=== PATIENT | female | born 1940 | race Hispanic/Latino ===

== ENCOUNTER 2018-01-03 07:14 | Observation (INO) | payer MEDICARE ==
[2017-12-31 14:32] LABS: BASOPHILS # (AUTO) 0.1 (0.0-0.1); BASOPHILS % 0.5 % (0.0-1.0); EOSINOPHILS # (AUTO) 0.1 (0.0-0.4); EOSINOPHILS % 1.4 % (0.0-6.0); HEMATOCRIT 39.3 % (34.2-44.1); HEMOGLOBIN 12.4 g/dL (12.0-16.0); LYMPHOCYTES # (AUTO) 2.4 (1.0-3.2); LYMPHOCYTES % 25.8 % (18.0-39.1); MEAN CORPUSCULAR HEMOGLOBIN 27.6 pg (28-32); MEAN CORPUSCULAR HGB CONC 31.6 g/dL (31-35); MEAN CORPUSCULAR VOLUME 87.3 fL (81-99); MONOCYTES # (AUTO) 0.8 (0.2-0.8); MONOCYTES % 8.8 % (4.4-11.3); NEUTROPHILS # (AUTO) 5.8 (2.1-6.9); NEUTROPHILS % 62.6 % (38.7-80.0); PLATELET COUNT 288 x10e3/uL (140-360); RED CELL DISTRIBUTION WIDTH 14.3 % (11.7-14.4)
[2017-12-31 14:47] LABS: ANION GAP 12.1 mmol/L (8-16); BLOOD UREA NITROGEN 17 mg/dL (7-26); BUN/CREATININE RATIO 21 (6-25); CALCIUM 9.8 mg/dL (8.4-10.2); CARBON DIOXIDE 28 mmol/L (22-29); CHLORIDE 104 mmol/L (98-107); EST GLOMERULAR FILTRATION RATE > 60 ML/MIN (60-); GLUCOSE 81 mg/dL (74-118); POTASSIUM 4.1 mmol/L (3.5-5.1); SODIUM 140 mmol/L (136-145)
--- NOTE | 2017-12-31 14:52 | Diagnostic Imaging Report ---
PROCEDURE: Frontal and lateral views of the chest. COMPARISON: None. INDICATIONS: PRE OP FOR BLADDER SURGERY FINDINGS: Lines/tubes: None. Lungs: The lungs are well inflated. There is no evidence of consolidation or pulmonary edema. Pleura: There is no pleural effusion or pneumothorax. Heart and mediastinum: Enlarged cardiac silhouette with central pulmonary venous congestion. Bones: No acute bony abnormality. IMPRESSION: 1. large cardiac silhouette with central pulmonary venous congestion. No consolidation or effusion. Brian Meade M.D. Dictated by: Brian Meade M.D. on 12/31/2017 at 14:54 Electronically approved by: Brian Meade M.D. on 12/31/2017 at 14:54
[~2018-01-03] VITALS: Ht 170.2 cm; Wt 143.3 kg
[~2018-01-03 07:14] MED LIST: CARVEDILOL12.5 MG PO; CYMBALTA30 MG; DILTIAZEM 24HR180 MG; ELIQUIS; FUROSEMIDE40 MG PO; GLIPIZIDE ER5 MG; LIDOCAINE HCL50 ML TOP; NORCO 10-325 T1 EACH; POLYETHYLENE GL17 GM PO; POTASSIUM CHLO10 ME1 PO; SIMVASTATIN20 MG PO; ULTRAM50 MG PO
--- OUTSIDE RECORDS SUMMARY | 2018-01-03 07:16 | XMS REPORT ---
Author Author [facility] Address Unknown Phone Unavailable Care Team Providers Care [employer] Set Up Mechanic Name Role Phone RICK OSCAR Unavailable Unavailable Problems This patient has no known problems. Allergies, Adverse Reactions, Alerts This patient has no known allergies or adverse reactions. Medications This patient has no known medications. Results Test Description Test Time Test Comments Text Results Atomic Results Result Comments CHEST 2 VIEWS [place] [address] Patient Name: KASSY MTZ MR #: [id number] : 1940 Age/Sex: 77/F Req # : [id number] Adm Physician: Ordered by: WILLARD VALDIVIA MD Report #: [id number] Location: OR Room/Bed: Procedure: [id number] DX/CHEST 2 VIEWS Exam Date: 12/31/17 Exam Time: 1436 REPORT STATUS: Signed PROCEDURE: Frontal and lateral views of the chest. COMPARISON: None. INDICATIONS: PRE OP FOR BLADDER SURGERY FINDINGS: Lines/tubes: None. Lungs: The lungs are well inflated. There is no evidence of consolidation or pulmonary edema. Pleura: There is no pleural effusion or pneumothorax. Heart and mediastinum: Enlarged cardiac silhouette with central pulmonary venous congestion. Bones: No acute bony abnormality. IMPRESSION: 1. large cardiac silhouette with central pulmonary venous congestion. No consolidation or effusion. Julius Meade M.D. Dictated by: Julius Meade M.D. on 12/31/2017 at 14:54 Electronically approved by : Julius Meade M.D. on 12/31/2017 at 14:54 Dictated By: JULIUS MEADE MD Transcribed By: OLVIN on 12/31/177 COPY TO: WILLARD VALDIVIA MD
[2018-01-03] MEDS ORDERED: CEFAZOLIN SOD 1 GM VIAL ONE (07:22)
[2018-01-03] MEDS ORDERED: VENTOLIN HFA18 GM (07:51)
[2018-01-03] MEDS ORDERED: IOPAMIDOL 610MG/1ML 300 MG/ML VIAL IV ONE (08:52)
[2018-01-03] MEDS ORDERED: MUPIROCIN 2% OINT 22 GM TUBE ONE (08:52)
[2018-01-03] MEDS ORDERED: BUPIVACAINE 0.25%/EPI 30ML SDV INJ ONE (08:52)
[2018-01-03] MEDS ORDERED: BACITRACIN 50,000 UNIT VIAL ONE (08:52)
[2018-01-03] MEDS ORDERED: METHYLENE BLUE 1% INJ 10 ML VIAL INJ ONE (08:52)
[2018-01-03] MEDS ORDERED: CEFAZOLIN SOD 2 GM/D5W 50ML 50 ML IV ONE (08:56)
[2018-01-03] MEDS ORDERED: CLINDAMYCIN 300MG 50 ML IV ONE (09:03)
[2018-01-03] MEDS ORDERED: FENTANYL CITRATE/PF 100MCG/2 ML INJ ONE ×2 (11:56→14:47)
[2018-01-03] MEDS ORDERED: SODIUM CHLORIDE 0.45% 1,000 ML IV SCH (12:13)
[2018-01-03] MEDS ORDERED: ONDANSETRON HCL INJ 2 MG/ML VIAL IV PRN (12:15)
[2018-01-03] MEDS ORDERED: HYDROMORPHONE 1MG/1ML INJ IV PRN (12:15)
[2018-01-03] MEDS ORDERED: DOCUSATE SODIUM 100 MG CAP PO PRN (12:15)
[2018-01-03] MEDS ORDERED: SIMETHICONE 80 MG CHEW PO PRN (12:15)
[2018-01-03] MEDS ORDERED: PROMETHAZINE HCL (IM) 25 MG/ML VIAL IV PRN (12:15)
[2018-01-03] MEDS ORDERED: MORPHINE SULFATE 2 MG/ML SYR IV PRN (12:15)
[2018-01-03] MEDS ORDERED: METOCLOPRAMIDE HCL 10 MG/2ML VIAL ONE (12:27)
[2018-01-03] MEDS ORDERED: ONDANSETRON HCL 4 MG ORAL DISINTEGRATING TAB ONE (12:28)
[2018-01-03] MEDS ORDERED: PROMETHAZINE 12.5MG/ NACL 0.9% 50 ML IV PRN (12:45)
[2018-01-03 13:19] VITALS: BP 105/80
[2018-01-03 13:28] VITALS: BP 105/80
[2018-01-03] MEDS ORDERED: CEFAZOLIN SOD 1 GM/NS 50ML 50 ML IV SCH (14:00)
[2018-01-03] MEDS: HYDROCODONE/APAP 10MG-325MG TAB PO PRN (14:45)
[2018-01-03 15:19] VITALS: BP 124/82
[2018-01-03] MEDS: SODIUM CHLORIDE 0.45% 1,000 ML IV SCH (16:00)
[2018-01-03] MEDS: CEFAZOLIN SOD 1 GM VIAL IV SCH (16:26)
[2018-01-03] MEDS: CLINDAMYCIN 600MG/D5W 50ML 50 ML IV SCH (16:26)
[2018-01-03 17:05] LABS: ANION GAP 16.2 mmol/L (8-16); BLOOD UREA NITROGEN 21 mg/dL (7-26); BUN/CREATININE RATIO 27 (6-25); CALCIUM 9.1 mg/dL (8.4-10.2); CARBON DIOXIDE 24 mmol/L (22-29); CHLORIDE 105 mmol/L (98-107); CREATININE, SERUM 0.79 mg/dL (0.57-1.11); EST GLOMERULAR FILTRATION RATE > 60 ML/MIN (60-); GLUCOSE 138 mg/dL (74-118); SODIUM 140 mmol/L (136-145)
[2018-01-03 17:06] LABS: POTASSIUM 5.2 mmol/L (3.5-5.1)
[2018-01-03 17:41] LABS: HEMATOCRIT 35.1 % (34.2-44.1); HEMOGLOBIN 11.2 g/dL (12.0-16.0); LYMPHOCYTES % 0.9 % (18.0-39.1); MEAN CORPUSCULAR HEMOGLOBIN 27.9 pg (28-32); MEAN CORPUSCULAR HGB CONC 31.9 g/dL (31-35); MEAN CORPUSCULAR VOLUME 87.3 fL (81-99); MONOCYTES % 0.4 % (4.4-11.3); PLATELET COUNT 268 x10e3/uL (140-360); RED BLOOD COUNT 4.02 x10e6/uL (3.6-5.1); RED CELL DISTRIBUTION WIDTH 14.3 % (11.7-14.4)
[2018-01-03] MEDS ORDERED: GLYCOPYRROLATE INJ 1MG/ 5 ML SYR ONE (17:48)
[2018-01-03] MEDS ORDERED: DEXAMETHASONE SOD PHOS INJ 4 MG/ML VIAL ONE (17:48)
[2018-01-03] MEDS ORDERED: PHENYLEPHRINE HCL 1% 10 MG/ML VIAL ONE (17:48)
[2018-01-03] MEDS ORDERED: SEVOFLURANE INHAL SOLN 250 ML PEN BTL ONE (17:48)
[2018-01-03] MEDS ORDERED: EPHEDRINE SULFATE INJ 50 MG/10 ML SYR ONE (17:48)
[2018-01-03] MEDS ORDERED: PROPOFOL IV EMULSION 10 MG/ML 20 ML VIAL ONE (17:48)
[2018-01-03] MEDS ORDERED: ONDANSETRON HCL INJ 2 MG/ML VIAL ONE (17:48)
[2018-01-03] MEDS ORDERED: NEOSTIGMINE 5 MG/5ML SYR ONE (17:48)
[2018-01-03] MEDS ORDERED: ROCURONIUM BROMIDE 10 MG/ML 5ML VIAL ONE (17:48)
[2018-01-03] MEDS ORDERED: LIDOCAINE HCL 2% LOCAL INJ 5 ML SDV VIAL INJ ONE (17:48)
[2018-01-03 20:00] VITALS: BP_SYST 112; BP_SYST 159; BP_DIAS 69; BP_DIAS 74
[2018-01-03] MEDS: HYDROMORPHONE 2MG/ML INJ IV PRN (22:15)
[2018-01-04 00:47] VITALS: BP 114/80
[2018-01-04] MEDS: SODIUM CHLORIDE 0.45% 1,000 ML IV SCH (01:15)
[2018-01-04] MEDS: CLINDAMYCIN 600MG/D5W 50ML 50 ML IV SCH ×2 (01:15→09:09)
[2018-01-04] MEDS: CEFAZOLIN SOD 1 GM VIAL IV SCH ×2 (01:15→09:09)
[2018-01-04] MEDS: HYDROMORPHONE 2MG/ML INJ IV PRN (02:53)
[2018-01-04 04:00] VITALS: BP 116/69
[2018-01-04 06:40] LABS: BASOPHILS % 0.1 % (0.0-1.0); HEMATOCRIT 32.1 % (34.2-44.1); HEMOGLOBIN 10.2 g/dL (12.0-16.0); LYMPHOCYTES # (AUTO) 1.5 (1.0-3.2); LYMPHOCYTES % 9.3 % (18.0-39.1); MEAN CORPUSCULAR HEMOGLOBIN 27.9 pg (28-32); MEAN CORPUSCULAR HGB CONC 31.8 g/dL (31-35); MEAN CORPUSCULAR VOLUME 87.9 fL (81-99); MONOCYTES # (AUTO) 1.2 (0.2-0.8); MONOCYTES % 7.5 % (4.4-11.3); NEUTROPHILS % 82.4 % (38.7-80.0); PLATELET COUNT 243 x10e3/uL (140-360); RED BLOOD COUNT 3.65 x10e6/uL (3.6-5.1); RED CELL DISTRIBUTION WIDTH 14.4 % (11.7-14.4)
[2018-01-04 07:03] LABS: ANION GAP 12.5 mmol/L (8-16); BLOOD UREA NITROGEN 17 mg/dL (7-26); BUN/CREATININE RATIO 22 (6-25); CALCIUM 8.5 mg/dL (8.4-10.2); CARBON DIOXIDE 26 mmol/L (22-29); CHLORIDE 105 mmol/L (98-107); CREATININE, SERUM 0.79 mg/dL (0.57-1.11); EST GLOMERULAR FILTRATION RATE > 60 ML/MIN (60-); GLUCOSE 129 mg/dL (74-118); POTASSIUM 4.5 mmol/L (3.5-5.1); SODIUM 139 mmol/L (136-145)
[2018-01-04 08:27] VITALS: BP 114/69
[2018-01-04] MEDS: HYDROCODONE/APAP 10MG-325MG TAB PO PRN (10:00)
--- NOTE | 2018-01-04 10:07 | History and Physical ---
The patient is postoperative care. HISTORY: Patient is a 77-year-old female postoperative care with Dr. Saunders for cystocele repair and urinary bladder lift. The patient has urinary incontinence. She is stable postop. PAST MEDICAL HISTORY: Multiple. Please review previous history and physical. She is morbidly obese, diabetes, hypertension, hyperlipidemia, osteoarthritic pain, urinary bladder drop, and urinary incontinence. PAST SURGICAL HISTORY: Abdominal apron removal, cholecystectomy, hysterectomy. SOCIAL HISTORY: Patient lives at home. She does not smoke or use alcohol. No recreational drugs. ALLERGIES: NO KNOWN ALLERGIES. HOME MEDICATIONS: List reviewed. REVIEW OF SYSTEMS: As mentioned. PHYSICAL EXAMINATION VITAL SIGNS: Stable. Postoperative orders are done. IMPRESSION: Postoperative cystocele repair and graft sling placement. PLAN: Continue with postoperative care. Resume home medications. Monitor the patient's lab work. The patient is stable. Please review the patient's shortstay history and physical from Dr. Carlito Saunders. Job#: [id number] PR
--- NOTE | 2018-01-04 10:24 | Operative Report ---
DATE OF PROCEDURE: January 03, 2018 SERVICE: Urology. ATTENDING: Dr. Omid Foster. PREOPERATIVE DIAGNOSIS: 1. Large cystocele. 2. Large rectocele. 3. Urinary incontinence. POSTOPERATIVE DIAGNOSIS: 1. Large cystocele. 2. Large rectocele. 3. Urinary incontinence. OPERATION PERFORMED: 1. Cystocele repair with fascia valeria graft. 2. Cystoscopy and retrograde pyelogram under fluoroscopic control. 3. Interpretation of x-ray. 4. Supervision of fluoroscopy. 5. Pelvic exam under anesthesia. This is done as part of the assessment of the large rectocele, not related to the cystocele. LIVE IN HOUSEKEEPER: Dr. Carlito Saunders. ANESTHESIA: General. CLINICAL INDICATION NOTE: This is a 77-year-old patient who has a very large cystocele, rectocele. Patient was brought for repair of the cystocele. She has also urinary incontinence. Patient is morbidly obese and advised in the past to try to lose weight, and she was able to lose some pounds but not that many. She was brought for surgery. She is aware of potential complications and benefits and knows that she may need additional procedures urologically as well as the rectocele repair. DESCRIPTION OF PROCEDURE AND FINDINGS: After a proper level of anesthesia was achieved, patient was placed in lithotomy position, prepped and draped in a sterile fashion. The labia minora were sutured laterally to expose the introitus using 2-0 silk. Following this, the anterior aspect of the cystocele was injected with 2.5% Marcaine. A long 22-gauge needle was used. Following this, a vaginal incision was made. Dissection was then carried on both sides towards the pelvis. This was done with blunt and sharp dissection until it was possible to palpate into the pelvis. A dissection posteriorly was done, reaching the area of the cervix. Patient did have hysterectomy in the past. Following this, 2-0 Vicryl sutures were used to repair the cystocele, interrupted sutures. Four of them were placed. Following this, the graft was prepared. Fascia valeria graft was used. The edges were cut, and the suture was placed on each corner to be used later in transferring to the suprapubic area, and a number 1 suture was used. Following this, a Torres catheter was inserted. The bladder was drained, and the graft was sutured using 3-0 chromic catgut. Its midline was sutured to the urethra, and the distal posterior part was sutured posteriorly. Additional 2 stitches were placed, 1 on each side anteriorly as well as posteriorly. Following this, with use of a Yashica needle, it was possible to transfer the sutures to the suprapubic area, hugging the symphysis and just behind it. Following this, the double string on each side was present. One of them was transferred from the left side to the right side and brought back with 1 suture from the contralateral side, and then the 2 sutures on each side were tied very loosely without pulling on the graft. Some of the excessive vaginal wall was excised, and the vaginal wall was closed with a running 2-0 Vicryl. The single small opening suprapubically was closed with a single fine stitch. Following this, a cystoscopy was done. Retrograde to the right side was unremarkable. On the left side, the ureteral orifice was displaced laterally and backward. It was possible to identify urine coming out from that orifice, and only the very distal was demonstrated retrograde. At this point, a Torres catheter 18-Martiniquais was placed and vaginal packing was done. Before the packing, a pelvic exam was done still under anesthesia, and no masses were palpable on both sides. Patient was then transferred after vaginal packing to the recovery room in satisfactory condition. Estimated blood loss just a few mL. Job#: [id number] TITUS
[2018-01-04] MEDS ORDERED: ONDANSETRON HCL 4 MG ORAL DISINTEGRATING TAB PO PRN (10:30)
--- NOTE | 2018-01-04 10:31 | Discharge Summary ---
CONSULTANTS: Dr. Carlito Saunders and Dr. Loretta Saunders FINAL DIAGNOSES 1. Status post urological procedure with cystocele repair, graft and sling secondary to urinary incontinence. Patient has rectal prolapse as well. 2. Multiple chronic baseline problems including diabetes, hypertension, morbidly obese, chronic osteoarthritic pain. HOSPITAL COURSE: Patient is a 77-year-old female status postoperative day #1 today. Patient is stable. She was on observation. She had a very complex cystocele repair, graft and sling placement. Patient has significant urinary incontinence. She is morbidly obese. Found out that the patient also has rectal prolapse as well. Patient will need close followup as an outpatient. Recommendations include weight loss, pain control and then possible referral to a colorectal surgeon for rectal prolapse repair. Patient is stable and discharged home today. The patient has been cleared. She will follow up with me next week. She will follow up with Dr. Saunders per his instructions. Resume home medications. Restart Eliquis on instead of today or tomorrow. The patient is stable and discharged home today. Job#: [id number]
== END 2018-01-04 11:42 | disposition home health service (06) ==
LOC: OR 07:14 → IMCU 12:59
PROVIDERS: ADMIT Internal Medicine; ATTEND Internal Medicine
DX: N81.10 Cystocele, unspecified (principal); R32 Unspecified urinary incontinence; N81.6 Rectocele; E11.65 Type 2 diabetes mellitus with hyperglycemia; Z79.4 Long term (current) use of insulin; I10 Essential (primary) hypertension; E66.01 Morbid (severe) obesity due to excess calories; Z68.43 Body mass index [BMI] 50.0-59.9, adult; K62.3 Rectal prolapse; I48.91 Unspecified atrial fibrillation; Z79.01 Long term (current) use of anticoagulants; G47.33 Obstructive sleep apnea (adult) (pediatric); I50.9 Heart failure, unspecified; Z88.8 Allergy status to other drugs, medicaments and biological substances
CPT/HCPCS: 36415 ×3; 57240; 57267; 71046; 74420; 80048 ×3; 82948; 85025 ×3; 93005; 97161; C1758; C1762; G0378 ×2; G8978; G8979; J0690 ×2; J1100; J1170 ×2; J2001; J2270; J2370; J2405; J2765; J3490; Q9967

== ENCOUNTER 2018-03-11 16:35 | Emergency (ER) | payer MEDICARE ==
[~2018-03-11] VITALS: Ht 170.2 cm; Wt 143.3 kg
[~2018-03-11 16:35] MED LIST changes: +VENTOLIN HFA18 GM
[2018-03-11 17:58] LABS: BASOPHILS # (AUTO) 0.1 (0.0-0.1); BASOPHILS % 0.8 % (0.0-1.0); EOSINOPHILS # (AUTO) 0.2 (0.0-0.4); EOSINOPHILS % 1.6 % (0.0-6.0); HEMATOCRIT 38.7 % (34.2-44.1); HEMOGLOBIN 12.4 g/dL (12.0-16.0); LYMPHOCYTES # (AUTO) 2.1 (1.0-3.2); LYMPHOCYTES % 20.8 % (18.0-39.1); MEAN CORPUSCULAR HEMOGLOBIN 27.1 pg (28-32); MEAN CORPUSCULAR VOLUME 84.5 fL (81-99); MONOCYTES # (AUTO) 0.8 (0.2-0.8); MONOCYTES % 7.9 % (4.4-11.3); NEUTROPHILS # (AUTO) 6.9 (2.1-6.9); NEUTROPHILS % 68.3 % (38.7-80.0); PLATELET COUNT 287 x10e3/uL (140-360); RED BLOOD COUNT 4.58 x10e6/uL (3.6-5.1)
[2018-03-11 18:02] LABS: INR 1.18; PROTHROMBIN TIME 14.1 seconds (11.9-14.5)
[2018-03-11 18:03] LABS: PARTIAL THROMBOPLASTIN TIME 32.3 seconds (23.8-35.5)
[2018-03-11 18:12] LABS: ALBUMIN 3.5 g/dL (3.5-5.0); ALBUMIN/GLOBULIN RATIO 1.1 (0.8-2.0); ANION GAP 14.1 mmol/L (8-16); CALCIUM 9.3 mg/dL (8.4-10.2); CREATININE, SERUM 1.04 mg/dL (0.57-1.11); POTASSIUM 3.1 mmol/L (3.5-5.1)
[2018-03-11 18:18] LABS: CREATINE KINASE MB 0.8 ng/mL (0-5.0)
[2018-03-11 19:03] LABS: CLARITY,URINE SL CLOUDY (CLEAR); COLOR,URINE YELLOW (YELLOW); LEUKOCYTE ESTERASE ,URINE TRACE (NEGATIVE); NITRITE,URINE NEGATIVE (NEGATIVE); PROTEIN,URINE DIPSTICK NEGATIVE (NEGATIVE)
[2018-03-11 19:04] LABS: BILIRUBIN,URINE NEGATIVE (NEGATIVE); KETONES,URINE NEGATIVE (NEGATIVE); URINE UROBILINOGEN 0.2 mg/dL (0.2 - 1)
[2018-03-11 19:10] LABS: BACTERIA,URINE RARE /HPF
[2018-03-11 19:11] LABS: EPITHELIAL CELLS,URINE MANY /LPF; MUCUS,URINE MODERATE (RARE)
--- NOTE | 2018-03-11 19:29 | Diagnostic Imaging Report ---
EXAMINATION: CHEST SINGLE (NOT PORTABLE) INDICATION: Rectal bleeding COMPARISON: 12/31/2017 FINDINGS: TUBES and LINES: None. LUNGS: Lungs are well inflated. Mild chronic appearing changes in the lungs. Perihilar peribronchial hazy opacity with linear density in the left hilar region could be due to bronchitis or early pneumonia. Suspected prominence of the pulmonary arteries. PLEURA: No pleural effusion or pneumothorax. HEART AND MEDIASTINUM: The cardiomediastinal silhouette is unremarkable. BONES AND SOFT TISSUES: No acute osseous lesion. Soft tissues are unremarkable. UPPER ABDOMEN: No free air under the diaphragm. IMPRESSION: Findings which could be due to bronchitis or early pneumonia. Suspected prominence of the pulmonary arteries. Nonemergent CT scan of the chest may be of benefit. Signed by: Dr. Alex Currie M.D. on 03/11/2018 7:26 PM
[2018-03-11 21:41] VITALS: BP 118/56
== END 2018-03-11 22:17 | disposition home or self-care (01) ==
LOC: ER 16:35
DX: K62.89 Other specified diseases of anus and rectum (principal); K62.3 Rectal prolapse; I10 Essential (primary) hypertension; E11.9 Type 2 diabetes mellitus without complications
CPT/HCPCS: 36415; 71045; 80053; 81001; 82550; 82553; 84484; 85025; 85610; 85730; 93005; 99283

== ENCOUNTER 2023-06-23 10:47 | Emergency (ER) | payer MEDICARE ==
[~2023-06-23] VITALS: Ht 170.2 cm; Wt 136.1 kg
[~2023-06-23 10:47] MED LIST changes: +DICYCLOMINE HCL10 MG PO
[2023-06-23] MEDS ORDERED: ONDANSETRON HCL INJ 2MG/ML 2ML 2 MG/ML VIAL IV STA (11:28)
[2023-06-23] MEDS ORDERED: SODIUM CHLORIDE 0.9% 1000ML 1,000 ML IV ONE (11:30)
[2023-06-23 11:37] LABS: BASOPHILS # (AUTO) 0.1 (0.0-0.1); BASOPHILS % 0.7 % (0.0-1.0); EOSINOPHILS # (AUTO) 0.2 (0.0-0.4); EOSINOPHILS % 1.9 % (0.0-6.0); HEMATOCRIT 43.8 % (34.2-44.1); HEMOGLOBIN 14.2 g/dL (12.0-16.0); LYMPHOCYTES # (AUTO) 2.5 (1.0-3.2); LYMPHOCYTES % 28.5 % (18.0-39.1); MEAN CORPUSCULAR HEMOGLOBIN 28.3 pg (28-32); MEAN CORPUSCULAR HGB CONC 32.4 g/dL (31-35); MEAN CORPUSCULAR VOLUME 87.3 fL (81-99); MONOCYTES # (AUTO) 0.7 (0.2-0.8); MONOCYTES % 8.5 % (4.4-11.3); NEUTROPHILS # (AUTO) 5.1 (2.1-6.9); NEUTROPHILS % 59.5 % (38.7-80.0); PLATELET COUNT 261 x10e3/uL (140-360); RED BLOOD COUNT 5.02 x10e6/uL (3.6-5.1); RED CELL DISTRIBUTION WIDTH 13.9 % (11.7-14.4); WHITE BLOOD COUNT 8.62 x10e3/uL (4.8-10.8)
[2023-06-23 11:49] LABS: INR 1.6; PROTHROMBIN TIME 19.4 seconds (11.9-14.5)
[2023-06-23 11:50] LABS: PARTIAL THROMBOPLASTIN TIME 41.8 seconds (23.8-35.5)
[2023-06-23 11:56] LABS: CLARITY,URINE CLOUDY (CLEAR); COLOR,URINE YELLOW (YELLOW)
[2023-06-23 11:57] LABS: ALBUMIN 3.9 g/dL (3.5-5.0); ALBUMIN/GLOBULIN RATIO 1.1 (0.8-2.0); ANION GAP 15.4 mmol/L (8-16); CALCIUM 9.8 mg/dL (8.4-10.2); CREATININE, SERUM 0.85 mg/dL (0.57-1.11); POTASSIUM 3.4 mmol/L (3.5-5.1)
[2023-06-23 11:57] LABS: KETONES,URINE NEGATIVE (NEGATIVE); LEUKOCYTE ESTERASE ,URINE TRACE (NEGATIVE); NITRITE,URINE NEGATIVE (NEGATIVE); PROTEIN,URINE DIPSTICK NEGATIVE (NEGATIVE); URINE UROBILINOGEN 0.2 mg/dL (0.2 - 1)
[2023-06-23 12:00] LABS: BACTERIA,URINE MANY /HPF; EPITHELIAL CELLS,URINE MODERATE /LPF; RBC,URINE 0-5 /HPF (0-5)
[2023-06-23] MEDS ORDERED: CEPHALEXIN500 MG PO (13:57)
[2023-06-23] MEDS ORDERED: PANTOPRAZOLE SO40 MG PO (13:59)
[2023-06-23 14:20] VITALS: BP 114/69; PULSE 83; RESP 17; TEMP 98.3; O2SAT 98
== END 2023-06-23 14:18 | disposition home or self-care (01) ==
LOC: ER 11:05
DX: R19.5 Other fecal abnormalities (principal); N39.0 Urinary tract infection, site not specified; I10 Essential (primary) hypertension; E11.9 Type 2 diabetes mellitus without complications; I50.9 Heart failure, unspecified; I48.91 Unspecified atrial fibrillation; E78.5 Hyperlipidemia, unspecified; M19.09 Primary osteoarthritis, other specified site
CPT/HCPCS: 36415; 80053; 81001; 83690; 85025; 85610; 85730; 99283; C9113; J2405; J7030

== ENCOUNTER 2024-05-03 11:10 | Inpatient (IN) | payer MEDICARE ==
[~2024-05-03] VITALS: Ht 170.2 cm; Wt 136.3 kg
[~2024-05-03 11:10] MED LIST changes: +CEPHALEXIN500 MG PO; +PANTOPRAZOLE SO40 MG PO
[2024-05-03 11:28] VITALS: TEMP 98.2
[2024-05-03 12:47] LABS: BASOPHILS # (AUTO) 0.1 (0.0-0.1); BASOPHILS % 1.1 % (0.0-1.0); EOSINOPHILS # (AUTO) 0.3 (0.0-0.4); EOSINOPHILS % 3.8 % (0.0-6.0); HEMATOCRIT 41.4 % (34.2-44.1); HEMOGLOBIN 12.1 g/dL (12.0-16.0); LYMPHOCYTES # (AUTO) 1.7 (1.0-3.2); LYMPHOCYTES % 22.7 % (18.0-39.1); MEAN CORPUSCULAR HEMOGLOBIN 27.9 pg (28-32); MEAN CORPUSCULAR HGB CONC 29.2 g/dL (31-35); MEAN CORPUSCULAR VOLUME 95.6 fL (81-99); MONOCYTES # (AUTO) 0.7 (0.2-0.8); MONOCYTES % 9.1 % (4.4-11.3); NEUTROPHILS # (AUTO) 4.6 (2.1-6.9); NEUTROPHILS % 62.4 % (38.7-80.0); PLATELET COUNT 203 x10e3/uL (140-360); RED BLOOD COUNT 4.33 x10e6/uL (3.6-5.1); RED CELL DISTRIBUTION WIDTH 14.2 % (11.7-14.4); WHITE BLOOD COUNT 7.44 x10e3/uL (4.8-10.8)
[2024-05-03 13:08] LABS: INR 1.9; PROTHROMBIN TIME 22.7 seconds (11.9-14.5)
[2024-05-03 13:09] LABS: PARTIAL THROMBOPLASTIN TIME 39.4 seconds (23.8-35.5)
[2024-05-03 13:10] LABS: INFLUENZAE A&B ANTIGEN (RAPID) NEGATIVE (NEGATIVE); RESPIRATORY SYNC. VIRUS NEGATIVE (NEGATIVE)
[2024-05-03 13:15] LABS: ALBUMIN 3.7 g/dL (3.5-5.0); ALBUMIN/GLOBULIN RATIO 1.2 (0.8-2.0); BILIRUBIN,TOTAL 0.9 mg/dL (0.2-1.2); CALCIUM 9.1 mg/dL (8.4-10.2); CREATININE, SERUM 0.88 mg/dL (0.57-1.11); MAGNESIUM 1.7 MG/DL (1.3-2.1); TOTAL PROTEIN 6.8 g/dL (6.5-8.1)
[2024-05-03 13:20] LABS: TROPONIN I 0.013 ng/mL (0-0.300)
[2024-05-03] MEDS: Morphine 2mg Syringe 2 MG/ML SYR IV ONE (13:38)
[2024-05-03] MEDS: ONDANSETRON HCL INJ 2MG/ML 2ML 2 MG/ML VIAL IV STA (13:38)
[2024-05-03] MEDS: SODIUM CHLORIDE 0.9% 500ML 500 ML IV ONE (13:38)
[2024-05-03] MEDS ORDERED: IOPAMIDOL 370 MG/ML 100 ML INFUS..BTL INJ ONE (13:42)
[2024-05-03] MEDS ORDERED: ONDANSETRON HCL INJ 2MG/ML 2ML 2 MG/ML VIAL IV PRN (16:30)
[2024-05-03] MEDS: METOPROLOL TARTRATE 25 MG TAB PO ONE (16:47)
[2024-05-03] MEDS: FUROSEMIDE INJ 10 MG/ML 2 ML VIAL IV SCH (16:47)
[2024-05-03 16:48] VITALS: PULSE 85; RESP 20; O2SAT 96
[2024-05-03 20:09] VITALS: PULSE 91; RESP 15
[2024-05-03 20:45] VITALS: BP 122/67; PULSE 67; RESP 19; TEMP 97.9; O2SAT 100
[2024-05-03 21:00] VITALS: BP 122/67; PULSE 67; RESP 19; TEMP 97.9; O2SAT 100
[2024-05-04] VITALS (10 sets, daily range): BP systolic 100–136; BP diastolic 62–74; PULSE 85–98; RESP 19–22; TEMP 97.6–98.6; O2SAT 94–100
[2024-05-04] MEDS ORDERED: XARELTO10 MG PO (00:13)
[2024-05-04] MEDS ORDERED: MONTELUKAST SOD10 MG PO (00:13)
[2024-05-04] MEDS ORDERED: NEURONTIN300 MG PO (00:13)
[2024-05-04] MEDS ORDERED: VENTOLIN HFA18 GM INH (00:13)
[2024-05-04] MEDS ORDERED: LEXAPRO10 MG PO (00:13)
[2024-05-04] MEDS ORDERED: POTASSIUM CHLO20 ME1 PO (00:13)
[2024-05-04] MEDS ORDERED: ALLOPURINOL100 MG PO (00:13)
[2024-05-04] MEDS ORDERED: DICYCLOMINE HCL20 MG PO (00:13)
[2024-05-04] MEDS: ACETAMINOPHEN 325 MG TAB PO PRN (04:34)
[2024-05-04 06:00] LABS: BASOPHILS # (AUTO) 0.1 (0.0-0.1); BASOPHILS % 0.8 % (0.0-1.0); EOSINOPHILS # (AUTO) 0.3 (0.0-0.4); EOSINOPHILS % 2.9 % (0.0-6.0); HEMATOCRIT 38.2 % (34.2-44.1); HEMOGLOBIN 11.1 g/dL (12.0-16.0); LYMPHOCYTES # (AUTO) 1.3 (1.0-3.2); MEAN CORPUSCULAR HEMOGLOBIN 27.8 pg (28-32); MEAN CORPUSCULAR HGB CONC 29.1 g/dL (31-35); MEAN CORPUSCULAR VOLUME 95.7 fL (81-99); MONOCYTES # (AUTO) 0.8 (0.2-0.8); NEUTROPHILS # (AUTO) 6.1 (2.1-6.9); NEUTROPHILS % 71.6 % (38.7-80.0); PLATELET COUNT 218 x10e3/uL (140-360); RED BLOOD COUNT 3.99 x10e6/uL (3.6-5.1); RED CELL DISTRIBUTION WIDTH 14.2 % (11.7-14.4); WHITE BLOOD COUNT 8.51 x10e3/uL (4.8-10.8)
[2024-05-04 06:38] LABS: ALBUMIN 3.3 g/dL (3.5-5.0); ALBUMIN/GLOBULIN RATIO 1.3 (0.8-2.0); ANION GAP 13.3 mmol/L (8-16); BILIRUBIN,TOTAL 0.7 mg/dL (0.2-1.2); CALCIUM 8.3 mg/dL (8.4-10.2); CREATININE, SERUM 0.89 mg/dL (0.57-1.11); POTASSIUM 4.3 mmol/L (3.5-5.1); TOTAL PROTEIN 5.8 g/dL (6.5-8.1)
[2024-05-04 06:55] LABS: CREATINE KINASE 40 IU/L (29-168)
[2024-05-04 07:48] LABS: TROPONIN I < 0.05 ng/mL (0.0-0.40)
[2024-05-04] MEDS: ESCITALOPRAM OXALATE 10 MG TAB PO SCH (08:49)
[2024-05-04] MEDS: ALLOPURINOL 100 MG TAB PO SCH (08:50)
[2024-05-04] MEDS: GABAPENTIN 300 MG CAP PO SCH (08:51)
[2024-05-04] MEDS: METOPROLOL TARTRATE 25 MG TAB PO SCH (08:51)
[2024-05-04] MEDS: RIVAROXABAN 15 MG TABLET PO SCH (09:38)
[2024-05-04] MEDS: DICYCLOMINE HCL 20 MG TAB PO SCH (12:12)
[2024-05-04 16:13] LABS: TROPONIN I 0.011 ng/mL (0-0.300)
[2024-05-04] MEDS: SIMVASTATIN 20 MG TAB PO SCH (20:57)
[2024-05-04] MEDS: MONTELUKAST SODIUM 10 MG TAB PO SCH (20:57)
[2024-05-05] VITALS (11 sets, daily range): BP systolic 106–125; BP diastolic 55–70; PULSE 52–88; RESP 18–22; TEMP 97.8–99.3; O2SAT 92–99
[2024-05-05 06:04] LABS: BASOPHILS # (AUTO) 0.1 (0.0-0.1); BASOPHILS % 0.8 % (0.0-1.0); EOSINOPHILS # (AUTO) 0.2 (0.0-0.4); EOSINOPHILS % 3.1 % (0.0-6.0); HEMATOCRIT 37.4 % (34.2-44.1); LYMPHOCYTES # (AUTO) 1.8 (1.0-3.2); LYMPHOCYTES % 24.8 % (18.0-39.1); MEAN CORPUSCULAR HEMOGLOBIN 28.1 pg (28-32); MEAN CORPUSCULAR HGB CONC 29.4 g/dL (31-35); MEAN CORPUSCULAR VOLUME 95.7 fL (81-99); MONOCYTES # (AUTO) 0.7 (0.2-0.8); MONOCYTES % 9.4 % (4.4-11.3); NEUTROPHILS # (AUTO) 4.4 (2.1-6.9); NEUTROPHILS % 61.3 % (38.7-80.0); PLATELET COUNT 209 x10e3/uL (140-360); RED BLOOD COUNT 3.91 x10e6/uL (3.6-5.1); RED CELL DISTRIBUTION WIDTH 14.1 % (11.7-14.4)
[2024-05-05 06:17] LABS: ANION GAP 11.9 mmol/L (8-16); CALCIUM 8.4 mg/dL (8.4-10.2); POTASSIUM 3.9 mmol/L (3.5-5.1)
[2024-05-05] MEDS: HYDROCODONE/APAP 10MG-325MG TAB PO ONE (11:00)
[2024-05-05] MEDS: FUROSEMIDE INJ 10 MG/ML 2 ML VIAL IV SCH (12:45)
[2024-05-05] MEDS ORDERED: ONDANSETRON HCL 4 MG ORAL DISINTEGRATING TAB PO PRN (13:45)
[2024-05-05] MEDS: HYDROCODONE/APAP 10MG-325MG TAB PO PRN (21:56)
[2024-05-06 00:42] VITALS: BP 104/62; PULSE 85; RESP 19; TEMP 98; O2SAT 93
[2024-05-06 04:00] VITALS: BP 115/71; PULSE 95; RESP 18; TEMP 98; O2SAT 96
[2024-05-06 06:00] LABS: ANION GAP 11.9 mmol/L (8-16); CALCIUM 8.4 mg/dL (8.4-10.2); CREATININE, SERUM 0.91 mg/dL (0.57-1.11); POTASSIUM 3.9 mmol/L (3.5-5.1)
[2024-05-06 06:14] VITALS: PULSE 74; RESP 20; O2SAT 96
[2024-05-06 07:47] VITALS: BP 125/76; PULSE 68; RESP 19; TEMP 98.6; O2SAT 96
[2024-05-06 08:22] VITALS: BP 125/76; PULSE 68; RESP 18; TEMP 98; O2SAT 99
[2024-05-06] MEDS ORDERED: POTASSIUM CHLO20 ME1 PO (10:28)
[2024-05-06] MEDS ORDERED: FUROSEMIDE40 MG PO (10:28)
[2024-05-06 11:33] VITALS: BP 134/82; PULSE 75; RESP 16; TEMP 98.2; O2SAT 98
== END 2024-05-06 13:08 | disposition home or self-care (01) | DRG 291 ==
LOC: ER 11:21 → ERHOLD 16:29 → MED/SURG2 21:21 → OBSVTOIN 05-04 17:43
PROVIDERS: ADMIT Internal Medicine; ATTEND Internal Medicine
DX: I11.0 Hypertensive heart disease with heart failure (principal); I50.33 Acute on chronic diastolic (congestive) heart failure; Z68.42 Body mass index [BMI] 45.0-49.9, adult; I48.11 Longstanding persistent atrial fibrillation; Z79.01 Long term (current) use of anticoagulants; E66.01 Morbid (severe) obesity due to excess calories; E11.42 Type 2 diabetes mellitus with diabetic polyneuropathy; I27.20 Pulmonary hypertension, unspecified; N83.9 Noninflammatory disorder of ovary, fallopian tube and broad ligament, unspecified; E78.5 Hyperlipidemia, unspecified; Z11.52 Encounter for screening for COVID-19; Z99.3 Dependence on wheelchair; Z74.01 Bed confinement status; Z79.899 Other long term (current) drug therapy
CPT/HCPCS: 36415; 71045; 74177; 80048; 80053; 82550; 83735; 83880; 84484; 85025; 85610; 85730; 87400; 87420; 93005; 93306; 94799; 99252; 99284; G0378; J0696; J1940; J2270; J2405; J7040; Q9967; U0002